=== PATIENT | female | born 1925 | race Caucasian/White ===

== ENCOUNTER 2017-01-23 10:35 | Emergency (ER) | payer MEDICARE, OTHER ==
[~2017-01-23] VITALS: Ht 162.6 cm; Wt 60.0 kg
[~2017-01-23 10:35] MED LIST: ASCO-294 PO; ASPI-973 PO; CALC-714 PO; CHOL10008 PO; DILT120T3 PO; SENN1TAB90 PO
--- NOTE | 2017-01-23 10:42 | ED.REPORT ---
HPI-Neurologic Deficit Date of Service Jan 23, 2017 ED Provider: Barak Tavares DO The patient is a 89 year old female w/ a hx of HTN who presents to the ED due to an episode of numbness earlier today. Pt states she was worried she was having a stroke. During the episode she noted symmetric bilateral lower extremity paresthesia which traveled to her thighs, symmetric bilateral fingertip paresthesia, and paresthesia along her right face. 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 She has been on lisinopril for 6 months and reports that the medication has been causing her problems and is making her leg numbness worse. At baseline, she has paresthesia up to the proximal tibia bilaterally. When she wakes up in the morning her legs are usually numb. She denies any extremity pain, SOB, headache , vomiting, diarrhea, abdominal pain, dysuria, and change in vision. Nursing Notes Stated Complaint: NUMB FACE AND LEGS Nursing Notes Reviewed: Yes Allergies: Coded Allergies: Sulfa (Sulfonamide Antibiotics) (Verified Allergy, Intermediate, Rash, 08/26/16) nitrofurantoin (Verified Allergy, Intermediate, Rash, 08/26/16) Scheduled Aspirin (Aspirin) 81 Mg Tablet 81 MG PO DIRECTED Diltiazem (Diltiazem) 120 Mg Tablet 120 MG PO BID Nifedipine ER (Nifedipine ER) 30 Mg Tab.er.24 30 MG PO DAILY Miscellaneous Medications Ascorbate Calcium (Vitamin C) 500 Mg Tablet 500 MG PO Calcium Carb/Magnesium Cmb #10 (Vito-Mag Tablet Chewable) 1 Each Tab.chew 1 EACH PO Cholecalciferol (Vitamin D3) (Vitamin D3) 1,000 Unit Tab.chew 1,000 UNIT PO Sennosides/Docusate Sodium (Senna-Docusate Sodium Tablet) 1 Each Tablet 1 EACH PO General Time Seen by Provider: 10:45 Chief Complaint Other (facial numbness) Hx Obtained From: Patient Arrived By: Walk-in Sudden in Onset?: Yes Onset Occurred: Just prior to arrival Symptom Duration: Since onset Severity: Current: No pain currently Recent Healthcare: No recent doctor visit, No recent hospitalization Similar Sx Previous: No Risk Factors NIH Stroke Scale Level of Consciousness: Alert and responsive (0) Ask Month & Age: Both questions right (0) Open/Close Eyes/Hand Hand Shoes Sewer: Performs both tasks (0) Horizontal EO Movements: None (0) Visual Chaudhari: No visual loss (0) Facial Palsy: Normal symmetry (0) Right Arm Motor Drift (10s): No drift 10 sec (0) Left Arm Motor Drift (10s): No drift 10 sec (0) Right Leg Motor Drift (5s): No drift 5 sec (0) Left Leg Motor Drift (5s): No drift 5 sec (0) Limb Ataxia FNF/Heel-George: No ataxia (0) Sensation (Arms/Legs/Face): No sensory loss (0) Language Aphasia: No aphasia, normal (0) Dysarthria: No dysarthria, normal (0) Extinction/Inattention: No exctinct/inattent (0) NIHSS Score: 0 Time NIHSS Performed: 10:54 Date NIHSS Performed: Jan 23, 2017 Past Medical History Past Medical History Hypertension GERD Anxiety Hypothyroid Hx breast CA s/p lumpectomy 2006 Past Surgical History Breast lumpectomy 2006 Appendectomy R hip Smoking History Never Smoker Social History Alcohol Use: "Social" Drug Use: Denies drug use Other Social History: Good social support, , Local resident Ambulatory Status Independent Review of Systems Eyes: Denies: Visual loss bilateral Respiratory: Denies: Shortness of breath GI: Denies: Abdominal pain, Diarrhea, Vomiting Musculoskeletal: Denies: Extremity pain Neurologic: Reports: Dizziness, Numbness, Denies: Headache Complete sys rev & neg: except as marked. Female: Denies: Dysuria Physical Exam Initial Vital Signs Vital Signs (First) Date Time Temp Pulse Resp B/P Pulse Ox O2 Delivery O2 Flow Rate FiO2 01/23/17 10:45 36.8 103 16 170/101 98 Room Air temp: 36.8 pulse: 103 Resp rate: 16 Blood Pressure 170/101 Pulse Oximetry 98 Initial VS: Reviewed ENT: Mucous membranes moist, Conjunctiva normal Neck: Supple, Non-tender General/Constitutional: Awake, Alert, Cooperative Distress / Hydration: Positive: Distress mild Head / Eyes: Normocephalic subjective paresthesia of right face symmetric and intact sensation to pin-prick on both sides of face persistent numbness in right side of her face Respiratory / Chest: Atraumatic, Breath sounds NL, Breath sounds = bilat, No respiratory distress, No rales, No rhonchi, No wheezing Cardiovascular: Heart rate NL, Regular rhythm, Heart sounds NL, No gallop, No murmurs, No rubs Neurologic: Oriented X3, Speech NL, No motor deficits, CN II - XII intact, Reflexes equal bilat, Cerebellar NL, Memory NL, Gait NL Symmetric stocking glove paresthesia(reported as mild diminished sensation to pinprick) beginning in the feet and going up to the mid tibial area bilaterally. Patellar and bicep reflexes are 2+ bilaterally, upper extremity motor strength 5 out of 5 for deltoid biceps and client success director strength, lower extremity motors strength 5 out of 5 bilaterally hip Flexors, knee extensors, dorsiflexion, plantarflexion. Abdomen: Atraumatic, Soft, Non-tender Lower Extremity / Pelvis / MS: Atraumatic, No swelling, Non-tender, Vascular intact, No edema Skin: No rash Interpretation & Diagnostics Interpretation & Diagnostics: BRAIN MRI IMPRESSION: 1. No acute intracranial abnormality. No evidence of central neuropathy in absence of IV contrast. 2. Mild cerebral atrophy and moderate small vessel ischemic changes. Dictated by: Aris Gonzalez M.D. on 01/23/2017 at 13:33 Approved by: Aris Gonzalez M.D. on 01/23/2017 at 13:45 Lab Results Interpretation Result Diagram: 01/23/17 1100 01/23/17 1100 Test 01/23/17 11:00 01/23/17 12:56 White Blood Count 6.8th/mm3 (3.8-10.1) Red Blood Count 5.02mil/mm3 (3.90-5.20) Hemoglobin 15.0g/dL (12.0-15.6) Hematocrit 44.8% (35.0-46.0) Mean Corpuscular Volume 89.2fL (81-100) Mean Corpuscular Hemoglobin 29.9pg (27.0-35.0) Mean Corpuscular Hemoglobin Concent 33.5% (32.0-37.0) Red Cell Distribution Width 13.1% (12.3-15.4) Platelet Count 284bil/L (150-400) Neutrophils (%) (Auto) 66.0% (40-74) Lymphocytes (%) (Auto) 21.1% (14-46) Monocytes (%) (Auto) 11.4% (4-12) Eosinophils (%) (Auto) 0.9% (0-5) Basophils (%) (Auto) 0.3% (0-3) Prothrombin Time 10.1sec (8.1-12.5) Prothromb Time International Ratio 0.95ratio Activated Partial Thromboplast Time 27.5sec (22.8-33.0) Sodium Level 138mEq/L (134-144) Potassium Level 4.3mEq/L (3.5-5.2) Chloride Level 100mEq/L (97-108) Carbon Dioxide Level 22mmol/L (18-29) Blood Urea Nitrogen 19mg/dL (8-27) Creatinine 0.65mg/dL (0.57-1.00) Estimat Glomerular Filtration Rate 123mL/min (>59) Glucose Level 105mg/dL (60-99) Calcium Level 10.0mg/dL (8.5-10.1) Total Bilirubin 0.7mg/dL (0.0-1.2) Aspartate Amino Transf (AST/SGOT) 22U/L (0-50) Alanine Aminotransferase (ALT/SGPT) 18U/L (0-32) Alkaline Phosphatase 84U/L (25-165) Total Protein 6.9g/dL (6.4-8.4) Albumin 4.3g/dL (3.4-5.0) Hold Webster Top Tube Received (Received) Urine Color Yellow (YELLOW) Urine Appearance Clear (CLEAR,HAZY) Urine pH 6.0 (5.0-8.0) Urine Specific Marcus 1.005 (1.003-1.035) Urine Protein Negativemg/dL (NEG,TRACE) Urine Glucose (UA) Negativemg/dL (NEGATIVE) Urine Ketones Negativemg/dL (NEGATIVE) Urine Occult Blood Negative (NEGATIVE) Urine Nitrite Negative (NEGATIVE) Urine Bilirubin Negative (NEGATIVE) Urine Urobilinogen Normalmg/dL (NORMAL) Urine Leukocyte Esterase Trace (NEGATIVE) Urine RBC 0-2/hpf (0-2) Urine WBC 0-5/hpf (0-5) Urine Epithelial Cells Occasional/hpf (NONE-MOD) Urine Crystals None seen (NONE SEEN) Urine Bacteria Few/hpf (NONE-FEW) Urine Hyaline Casts None/lpf (NONE) Urine Granular Casts None seen (NONE SEEN) Urine Waxy Casts None seen (NONE SEEN) Urine Red Blood Cell Casts None seen (NONE SEEN) Urine White Blood Cell Casts None seen (NONE SEEN) Urine Mucus None seen (None Seen) Urine Trichomonas None seen (NONE SEEN) Urine Yeast None (NONE SEEN) Urinalysis Comment None Urine Culture Reflexed Indicated ECG Interpretation ECG Interpretation: sinusectopic atrial rhythm (rate 96) odd p-wave morphology, stable compared to prior Time: 10:52 Interpreted by: ED physician X-Ray Chest Interpretation Chest Xray Interpretation: IMPRESSION: 1. Findings compatible with COPD without definite acute changes. Dictated by: Joel Harrison M.D. on 01/23/2017 at 11:19 Approved by: Joel Harrison M.D. on 01/23/2017 at 11:20 View: Portable Interpretation / Wet Read by: Interpret - Radiologist CT Head Interpretation IMPRESSION: 1. Volume loss and small vessel ischemic disease. 2. No acute intracranial abnormality. Dictated by: Erin Lake M.D. on 01/23/2017 at 11:26 Approved by: Erin Lake M.D. on 01/23/2017 at 11:27 Study: Head CT no contrast Interpretation / Wet Read by: Interpret - Radiologist Re-Eval/Medical Decision Med Decision/Clinical Course Patient presents after a transient episode of right face, symmetric bilateral upper extremity and bilateral lower extremity paresthesia which has subsequently resolved. Her lower extremity paresthesias are chronic and slowly progressive over approximately 15 years and worsening over 6 months, given the distribution of her symptoms it seems unlikely to be acute CVA or TIA given the bilateral nature of her symptoms. She has no objective deficits on NIH stroke scale, negative head CT. She is hypertensive but this seems to be a chronic issue for her I do not think this represents hypertensive emergency. I do not think that she has signs or symptoms of Guillain-Barrientos syndrome, she has no motor weakness and chronic symmetrical lower extremity sensory neuropathy, it is not rapidly progressive, she has symmetric bilateral 2+ reflexes in the patellar and bicep area. Overall it seems that she needs better blood pressure control, she will be started on nifedipine while in the ER. She should continue aspirin, she should continue her other blood pressure medications. She should follow-up closely with her memory care team. Return and follow-up precautions are given. Re-Evaluation/Progress : Time of Eval: 11:32 Re-Evaluation/Progress Note: Pt rechecked. Her blood pressure is still elevated. Counseled Regarding: Diagnosis, Lab results, Need for follow-up, When/why to return to ED Discharge & Departure Impression: Primary Impression: High blood pressure Hypertension type: unspecified secondary hypertension Qualified Code: I15.9 - Secondary hypertension, unspecified Disposition: Home Discharge Condition All VS Reviewed: Yes Condition: Stable Additional Instructions: There is no evidence of stroke or other progressive neurologic deficit. MRI is negative. Use the blood pressure medicine prescribed. Call your primary care doctor today for a close follow-up appointment next week. Return to ER immediately if you develop signs of stroke such as unilateral numbness or weakness or any other concerns Referrals: [facility] (PCP) Sohail Valente MD (Family) Jaime Strange Attestation Portion of this note were transcribed by Erum Beard. I, Dr. Tavares, personally performed the history, physical exam, and medical decision-making: I reviewed and confirmed the accuracy for the information in the transcribed note. Signed by: zelalem Kaplan, 01/23/17 1500 copies to: Sohail Valente MD; [facility]; Jaime Strange Timothy S DO Jan 23, 2017 10:42 Erum Beard Jan 23, 2017 10:51
[2017-01-23 10:45] VITALS: BP 170/101; PULSE 103; RESP 16; O2SAT 98
[2017-01-23 11:20] LABS: BASOPHILS % (AUTO) 0.3 % (0-3); EOSINOPHILS % (AUTO) 0.9 % (0-5); MONOCYTES % (AUTO) 11.4 % (4-12); Mean Corpuscular Hemoglobin 29.9 pg (27.0-35.0); Mean Corpuscular Volume 89.2 fL (81-100); Platelet Count 284 bil/L (150-400)
--- NOTE | 2017-01-23 11:22 | DRSVH ---
PROCEDURE: X-RAY CHEST ONE VIEW, PORTABLE ([id number]) INDICATIONS: hypertension TECHNIQUE: One view of the chest was acquired. COMPARISON: [facility], CR, XR CHEST 1VW (PORTABLE), 08/26/2016, 12:30. FINDINGS: Surgical changes and devices: None. Lungs and pleura: No pleural effusions or pneumothorax. There is hyperinflation of the lungs with f lattening of the hemidiaphragms compatible with COPD. Lungs are clear. Mediastinum: Mediastinal contours appear normal. Heart size is normal. Bones and chest wall: No suspicious bony lesions. Overlying soft tissues appear unremarkable. IMPRESSION: 1. Findings compatible with COPD without definite acute changes. Dictated by: Joel Harrison M.D. on 01/23/2017 at 11:19 Approved by: Joel Harrison M.D. on 01/23/2017 at 11:20
--- NOTE | 2017-01-23 11:28 | DRSVH ---
PROCEDURE: CT BRAIN WITHOUT CONTRAST ([id number]) INDICATIONS: transient facial numbness TECHNIQUE: Noncontrast 4.5 mm thick angled axial sections acquired from the foramen magnum to the vertex, with c oronal reformats. COMPARISON: [facility], CT, CT BRAIN WO CON, 07/04/2016, 14:26. FINDINGS: Image quality: Excellent. CSF spaces: Basal cisterns are patent. No extra-axial fluid collections. The ventricles are symmet kasie in size and shape. Brain: No intracranial bleeds or masses. No change in small chronic right caudate head infarct. Ther e is cerebral volume loss for age, with resultant ventricular and sulcal prominence. There are periv entricular and deep white matter chronic small vessel ischemic changes. There is intracranial property management intern al carotid artery atherosclerosis. Skull and face: Calvarium and visualized facial bones appear intact, without suspicious lesions. Sinuses: Visualized sinuses and mastoids are clear. IMPRESSION: 1. Volume loss and small vessel ischemic disease. 2. No acute intracranial abnormality. Dictated by: Erin Lake M.D. on 01/23/2017 at 11:26 Approved by: Erin Lake M.D. on 01/23/2017 at 11:27
[2017-01-23 11:30] VITALS: BP 204/110; PULSE 85; RESP 16; O2SAT 99
[2017-01-23 11:33] LABS: INR 0.95 ratio
[2017-01-23] MEDS ORDERED: NIFEdipine 30 mg ER24 Tablet PO ONE (11:35)
[2017-01-23 12:22] VITALS: BP 180/90; PULSE 85; RESP 16; O2SAT 98
[2017-01-23 13:04] LABS: APPEARANCE,URINE CLEAR (CLEAR,HAZY); COLOR,URINE YELLOW (YELLOW); OCCULT BLOOD,URINE NEGATIVE (NEGATIVE); UROBILINOGEN,URINE NORMAL (NORMAL)
--- NOTE | 2017-01-23 13:46 | DRSVH ---
PROCEDURE: MRI BRAIN WITHOUT CONTRAST ([id number]) INDICATIONS: right facial parasthesia TECHNIQUE: Non-contrast axial T1 spin echo, axial T2 fast spin echo, sagittal and axial FLAIR, coronal T2 fast s pin echo, axial gradient echo, axial diffusion and ADC through the brain. COMPARISON: CT brain 01/23/2017, 07/04/2016 FINDINGS: Image quality: Excellent. CSF spaces: Ventricles appear symmetric in size and shape. Basal cisterns are patent. No extra-axi al fluid collections. Brain: No intracranial bleeds or mass effects. There is cerebral volume loss for age. There are pe riventricular and deep white matter chronic small vessel ischemic changes. Brainstem appears normal. Diffusion-weighted images show no acute ischemic insults. No chronic ischemic insults. Normal int ravascular flow voids are present. Skull and face: Calvarial bone marrow is normal in signal. Orbits are normal. Sinuses: Sinuses and mastoids are clear. IMPRESSION: 1. No acute intracranial abnormality. No evidence of central neuropathy in absence of IV contrast. 2. Mild cerebral atrophy and moderate small vessel ischemic changes. Dictated by: Aris Gonzalez M.D. on 01/23/2017 at 13:33 Approved by: Aris Gonzalez M.D. on 01/23/2017 at 13:45
[2017-01-23] MEDS ORDERED: NIFE30TA79 PO (13:58)
[2017-01-23 14:29] VITALS: BP 180/90; PULSE 85; RESP 16; O2SAT 98
== END 2017-01-23 14:30 | disposition home or self-care (01) ==
LOC: SED 10:35
DX: I15.9 Secondary hypertension, unspecified (principal); K21.9 Gastro-esophageal reflux disease without esophagitis; E03.9 Hypothyroidism, unspecified; Z79.82 Long term (current) use of aspirin; Z88.2 Allergy status to sulfonamides; Z88.8 Allergy status to other drugs, medicaments and biological substances

== ENCOUNTER 2017-03-19 05:38 | Emergency (ER) | payer MEDICARE, OTHER ==
[~2017-03-19] VITALS: Ht 162.6 cm; Wt 57.2 kg
[~2017-03-19 05:38] MED LIST changes: +NIFE30TA79 PO
[2017-03-19 05:39] VITALS: BP 202/99; PULSE 80; RESP 16; O2SAT 97
[2017-03-19 05:56] VITALS: BP 197/70; PULSE 78
[2017-03-19 05:57] VITALS: BP_SYST 201; BP_SYST 214; BP_DIAS 100; BP_DIAS 96; PULSE 77; PULSE 79
--- NOTE | 2017-03-19 06:13 | ED.REPORT ---
HPI-Dizziness / Weakness Date of Service Mar 19, 2017 ED Provider: Radha Gomez MD The patient is an 89 year old female with history of hypertension, anxiety, hypothyroidism, and breast cancer s/p lumpectomy, who presents to the emergency department complaining of dizziness that she noticed when she woke up this morning at 0400. She describes the dizziness as if she was walking on a boat. Her symptoms are exacerbated with standing, head movement, and changes in position. She felt like she was going to fall when she got up from bed to use the restroom. She was able to hold on to the wall and she never fully fell to the ground. She denies any pain. She also noticed some nausea and bilateral hand tingling. She has had similar dizziness in the past but not as severe. She was started on a new blood pressure medication called Losartan about 1 month ago and has not felt right since. She has noticed mild headaches in the morning. She had a mild frontal headache this morning but it has resolved. She took her blood pressure medication just before she left. She denies visual changes, weakness, chest pain, abdominal pain, back pain or shortness of breath. Nursing Notes Stated Complaint: DIZZINESS,WEAKNESS Chief Complaint: Neuro Symptoms/ Deficits Nursing Notes Reviewed: Yes Allergies: Coded Allergies: Sulfa (Sulfonamide Antibiotics) (Verified Allergy, Intermediate, Rash, 03/19) nitrofurantoin (Verified Allergy, Intermediate, Rash, 08/26/16) Scheduled Aspirin (Aspirin) 81 Mg Tablet 81 MG PO DIRECTED Diltiazem (Diltiazem) 120 Mg Tablet 120 MG PO BID Nifedipine ER (Nifedipine ER) 30 Mg Tab.er.24 30 MG PO DAILY Miscellaneous Medications Ascorbate Calcium (Vitamin C) 500 Mg Tablet 500 MG PO Calcium Carb/Magnesium Cmb #10 (Vito-Mag Tablet Chewable) 1 Each Tab.chew 1 EACH PO Cholecalciferol (Vitamin D3) (Vitamin D3) 1,000 Unit Tab.chew 1,000 UNIT PO Sennosides/Docusate Sodium (Senna-Docusate Sodium Tablet) 1 Each Tablet 1 EACH PO General Time Seen by MD: 06:10 Chief Complaint Dizzy Hx Obtained From: Patient, Other family... Arrived By: Walk-in Onset Occurred: 1 - 4 hours ago Symptom Duration: 1 - 4 hours Location: : Head Quality: Painful Severity: Current: No pain currently Severity: Maximum: Mild Recent Healthcare: No recent doctor visit, No recent hospitalization Similar Sx Previous: Yes Past Medical History Past Medical History Hypertension GERD Anxiety Hypothyroid Hx breast CA s/p lumpectomy 2007 Past Surgical History Breast lumpectomy 2007 Appendectomy R hip Bilateral eye surgery Family History Noncontributiry Smoking History Never Smoker Social History Alcohol Use: "Social" Drug Use: Denies drug use Other Social History: Good social support, , Local resident Ambulatory Status Independent Review of Systems Eyes: Denies: Blurred bilateral, Diplopia, Visual loss bilateral Respiratory: Denies: Shortness of breath Cardiovascular: Denies: Chest pain GI: Reports: Nausea, Denies: Abdominal pain Neurologic: Reports: Dizziness, Headache (resolved), Numbness (bilateral hand tingling), Problem walking (off-balance), Denies: Focal weakness, Vision change Complete sys rev & neg: except as marked. Musculoskeletal: Denies: Back pain Physical Exam Initial Vital Signs Vital Signs (First) Date Time Temp Pulse Resp B/P Pulse Ox O2 Delivery O2 Flow Rate FiO2 03/19/17 05:39 36.3 80 16 202/99 97 Room Air Initial VS: Reviewed, Vital signs abnormal ENT: Mucous membranes moist, Conjunctiva normal, No scleral icterus Abdomen / GI: Soft, Non-tender, No guarding, No rebound, No distention Lymphatic: No lymphadenopathy Extremities: Vascular intact, Neuro intact, No swelling, No tenderness Skin: Warm, Dry, No cyanosis Psychiatric: Mood/affect normal, Behavior normal, Normal thought content General/Constitutional: Awake, Alert, Cooperative Head / Eyes: Atraumatic, Normocephalic, PERRL, EOMI, No nystagmus, Conjunctiva NL Respiratory / Chest: Atraumatic, Breath sounds NL, Breath sounds = bilat, No respiratory distress, No rales, No rhonchi, No wheezing Cardiovascular: Heart rate NL, Regular rhythm, Heart sounds NL, No gallop, No murmurs, No rubs, Cap refill not delayed, Peripheral circulation NL Neurologic: Oriented X3, Speech NL, No motor deficits, No sensory deficits, CN II - XII intact, Cerebellar NL, Memory NL No dysmetria. Negative Romberg. Neck: Atraumatic, Supple, Full range of motion, No carotid bruit Interpretation & Diagnostics Lab Results Interpretation Result Diagram: 03/19/17 0650 03/19/17 0650 Test 03/19/17 06:50 03/19/17 07:27 White Blood Count 7.5th/mm3 (3.8-10.1) Red Blood Count 5.01mil/mm3 (3.90-5.20) Hemoglobin 15.2g/dL (12.0-15.6) Hematocrit 44.8% (35.0-46.0) Mean Corpuscular Volume 89.4fL (81-100) Mean Corpuscular Hemoglobin 30.3pg (27.0-35.0) Mean Corpuscular Hemoglobin Concent 33.9% (32.0-37.0) Red Cell Distribution Width 12.9% (12.3-15.4) Platelet Count 272bil/L (150-400) Neutrophils (%) (Auto) 73.6% (40-74) Lymphocytes (%) (Auto) 17.2% (14-46) Monocytes (%) (Auto) 8.2% (4-12) Eosinophils (%) (Auto) 0.8% (0-5) Basophils (%) (Auto) 0.1% (0-3) Sodium Level 143mEq/L (134-144) Potassium Level 4.3mEq/L (3.5-5.2) Chloride Level 103mEq/L (97-108) Carbon Dioxide Level 24mmol/L (18-29) Blood Urea Nitrogen 17mg/dL (8-27) Creatinine 0.57mg/dL (0.57-1.00) Estimat Glomerular Filtration Rate 143mL/min (>59) Glucose Level 104mg/dL (60-99) Calcium Level 10.0mg/dL (8.5-10.1) Magnesium Level 1.9mg/dL (1.6-2.6) Troponin T < 0.010ug/L (0.0-0.011) Hold Webster Top Tube Received (Received) Urine Color Yellow (YELLOW) Urine Appearance Hazy (CLEAR,HAZY) Urine pH 7.0 (5.0-8.0) Urine Specific [place] 1.010 (1.003-1.035) Urine Protein Negativemg/dL (NEG,TRACE) Urine Glucose (UA) Negativemg/dL (NEGATIVE) Urine Ketones Negativemg/dL (NEGATIVE) Urine Occult Blood Negative (NEGATIVE) Urine Nitrite Negative (NEGATIVE) Urine Bilirubin Negative (NEGATIVE) Urine Urobilinogen Normalmg/dL (NORMAL) Urine Leukocyte Esterase Moderate (NEGATIVE) Urine RBC 0-2/hpf (0-2) Urine WBC 6-10/hpf (0-5) Urine Epithelial Cells Occasional/hpf (NONE-MOD) Urine Crystals None seen (NONE SEEN) Urine Bacteria Few/hpf (NONE-FEW) Urine Hyaline Casts None/lpf (NONE) Urine Granular Casts None seen (NONE SEEN) Urine Waxy Casts None seen (NONE SEEN) Urine Red Blood Cell Casts None seen (NONE SEEN) Urine White Blood Cell Casts None seen (NONE SEEN) Urine Mucus None seen (None Seen) Urine Trichomonas None seen (NONE SEEN) Urine Yeast None (NONE SEEN) Urinalysis Comment None Urine Culture Reflexed Indicated ECG Interpretation ECG Interpretation: Sinus rhythm with a rate 70 bpm Time: 07:07 Interpreted by: ED physician X-Ray Chest Interpretation View: Portable, 1 view Interpretation / Wet Read by: Wet read ED physician NL X-Ray Chest Findings: No infiltrate, No acute disease Re-Eval/Medical Decision Med Decision/Clinical Course The patient has complaints of pain dizzy and unsteady Gonzalez has a normal neurologic exam and no ocular findings are worrisome for central or peripheral vertigo. She says she has not felt normal since taking her medication so this may indeed be a side effect from her blood pressure medication. The patient's blood pressure came down somewhat while here but is still elevated, and looking in her record this is not unusual for her. Partial list of differential diagnoses considered were CVA, adverse medication reaction, dehydration, electrolyte abnormality, dysrhythmia, and infection. Source of Hx: Old records, Family Re-Evaluation/Progress #1: Time of Eval: 06:30 Re-Evaluation/Progress Note: Discussed exam findings with the patient and her family. Re-Evaluation/Progress #2: Time of Eval: 08:58 Re-Evaluation/Progress Note: Rechecked the patient. Discussed results, diagnosis, and plan for discharge. All questions were addressed. Counseled Regarding: Diagnosis, Lab results, Need for follow-up, When/why to return to ED Patient Discharge & Departure Impression: Primary Impression: Dizziness Disposition: Home Discharge Condition All VS Reviewed: Yes Condition: Stable Additional Instructions: Thank you for entrusting us with your care today. Your workup today is reassuring. It is possible that this is related to your medications. There is no signs of a stroke, dehydration or infection. Make a followup appointment with your regular doctor for further evaluation. Seek care for any new or concerning symptoms. Referrals: Pieter Camara DO (PCP) Sohail Valente MD (Family) Scribsteven Attestation Portions of this note were transcribed by Chelle Sinclair. I, Dr. Gomez personally performed the history, physical exam and medical decision-making; I reviewed and confirmed the accuracy of the information in the transcribed note. Signed by: Conchita Tolentino, 03/19/2017 at 0900. Sohail Valente MD; Pieter Camara Jena M MD Mar 19, 2017 06:13 Chelle Sinclair Mar 19, 2017 06:21
[2017-03-19] MEDS ORDERED: 0.9% Sodium Chloride 500 ML IV ONE (06:40)
[2017-03-19 07:05] LABS: BASOPHILS % (AUTO) 0.1 % (0-3); EOSINOPHILS % (AUTO) 0.8 % (0-5); MONOCYTES % (AUTO) 8.2 % (4-12); Mean Corpuscular Hemoglobin 30.3 pg (27.0-35.0); Mean Corpuscular Volume 89.4 fL (81-100); NEUTROPHILS % (AUTO) 73.6 % (40-74); Platelet Count 272 bil/L (150-400)
[2017-03-19 07:15] VITALS: BP 173/96; PULSE 65; O2SAT 99
[2017-03-19 07:40] LABS: Magnesium 1.9 mg/dL (1.6-2.6)
[2017-03-19 07:43] LABS: TROPONIN T < 0.010 ug/L (0.0-0.011)
[2017-03-19 08:07] LABS: APPEARANCE,URINE HAZY (CLEAR,HAZY); COLOR,URINE YELLOW (YELLOW); OCCULT BLOOD,URINE NEGATIVE (NEGATIVE); UROBILINOGEN,URINE NORMAL (NORMAL)
[2017-03-19 09:18] VITALS: BP 188/93; PULSE 79
[2017-03-19 09:32] VITALS: BP 188/93; PULSE 79; RESP 16; O2SAT 99
--- NOTE | 2017-03-19 09:44 | DRSVH ---
PROCEDURE: X-RAY CHEST ONE VIEW, PORTABLE ([id number]) INDICATIONS: 89 year-old female with hypertension. TECHNIQUE: One view of the chest was acquired. COMPARISON: [facility], CR, XR CHEST 1VW (PORTABLE), 01/23/2017, 10:58[facility] 08/26/2016, 12:30. [facility], CR, XR CHEST 1V POR TABLE, 03/18/2016, 4:55 PM. FINDINGS: Surgical changes and devices: Right axillary lymph node dissection clip is present. Lungs and pleura: No pleural effusions or pneumothorax. Lungs are clear. Lung volumes are prominen t. Mediastinum: Mediastinal contours appear normal. Heart size is normal. Bones and chest wall: No suspicious bony lesions. Overlying soft tissues appear unremarkable. IMPRESSION: No acute cardiopulmonary disease. Prominent lung volumes raise the question of chronic ob structive pulmonary disease. Dictated by: Pete Cross M.D. on 03/19/2017 at 9:41 Approved by: Pete Cross M.D. on 03/19/2017 at 9:42
== END 2017-03-19 09:33 | disposition home or self-care (01) ==
LOC: SED 05:38
DX: R42 Dizziness and giddiness (principal); R11.0 Nausea; R20.2 Paresthesia of skin; R51 Headache; I10 Essential (primary) hypertension; K21.9 Gastro-esophageal reflux disease without esophagitis; E03.9 Hypothyroidism, unspecified; Z79.82 Long term (current) use of aspirin; Z88.2 Allergy status to sulfonamides; Z88.8 Allergy status to other drugs, medicaments and biological substances
CPT/HCPCS: 36415; 71010; 80048; 81000; 83735; 84484; 85025; 87086; 87088; 93005; 96360; 99285; J7040